=== PATIENT | female | born 1990 | race African-American/Black ===

== ENCOUNTER 2020-06-24 14:19 | Emergency (ER) | payer SELFPAY ==
[~2020-06-24] VITALS: Ht 167.6 cm; Wt 83.0 kg
== END 2020-06-24 15:53 | disposition home or self-care (01) ==
LOC: FSED 14:28
DX: G89.11 Acute pain due to trauma (principal); M54.2 Cervicalgia; M54.9 Dorsalgia, unspecified; V44.5XXA Car driver injured in collision with heavy transport vehicle or bus in traffic accident, initial encounter
CPT/HCPCS: 99283